=== PATIENT | female | born 1995 | race American Indian/Alaskan Native ===

== ENCOUNTER 2022-02-20 10:55 | Emergency (ER) | payer MEDICAID ==
[2022-02-20 11:10] VITALS: BP 104/79
[2022-02-20] MEDS ORDERED: dexAMETHasone 4 MG/ML VIAL IM ONE (12:33)
[2022-02-20] MEDS ORDERED: ACETAMINOPHEN 500 MG TAB PO ONE (12:33)
--- NOTE | 2022-02-20 12:37 | Emergency Department Report ---
ED ENT HPI - General Chief complaint: Earache Stated complaint: EAR INFECTION Time Seen by Provider: 02/20/22 12:32 Source: patient Mode of arrival: Ambulatory Limitations: No Limitations - History of Present Illness Initial comments: Patient is a 27-year-old female that comes to the emergency room complaining of bilateral ear pain right greater than left. She cannot get in with her primary care for several weeks. She has been taking her mother's amoxicillin. She is 15 weeks . She has no abdominal pain. No vaginal bleeding. No vaginal discharge. No dysuria. No fever or chills. She states that she has had otitis media in the past and knows that this is what it is. MD complaint: ear pain -: Gradual, days(s) Location: R ear Severity: mild Quality: aching Consistency: intermittent Improves with: none Worsens with: none - Related Data Previous Rx's Medication Instructions Recorded Last Taken Type Amoxicillin [Trimox CAP] 500 mg PO BID #20 capsule 02/20/22 Unknown Rx Ofloxacin 0.3% [Floxin 0.3% Otic] 3 drops OT Q4H #1 bottle 02/20/22 Unknown Rx Allergies Allergy/AdvReac Type Severity Reaction Status Date / Time No Known Allergies Allergy Verified 02/20/22 11:07 ED Dental HPI - General Chief complaint: Earache Stated complaint: EAR INFECTION Time Seen by Provider: 02/20/22 12:32 Source: patient Mode of arrival: Ambulatory Limitations: No Limitations - Related Data Previous Rx's Medication Instructions Recorded Last Taken Type Amoxicillin [Trimox CAP] 500 mg PO BID #20 capsule 02/20/22 Unknown Rx Ofloxacin 0.3% [Floxin 0.3% Otic] 3 drops OT Q4H #1 bottle 02/20/22 Unknown Rx Allergies Allergy/AdvReac Type Severity Reaction Status Date / Time No Known Allergies Allergy Verified 02/20/22 11:07 ED Review of Systems ROS: Stated complaint: EAR INFECTION Other details as noted in HPI Comment: All other systems reviewed and negative ED Past Medical Hx - Past Medical History Previous Medical History?: No - Surgical History Past Surgical History?: No - Family History Family history: no significant - Social History Smoking Status: Never Smoker Substance Use Type: None - Medications Home Medications: Home Medications Medication Instructions Recorded Confirmed Last Taken Type Amoxicillin [Trimox CAP] 500 mg PO BID #20 capsule 02/20/22 Unknown Rx Ofloxacin 0.3% [Floxin 0.3% Otic] 3 drops OT Q4H #1 bottle 02/20/22 Unknown Rx ED Physical Exam - General Limitations: No Limitations General appearance: alert, in no apparent distress - Head Head exam: Present: atraumatic, normocephalic - Eye Eye exam: Present: normal appearance - ENT ENT exam: Present: mucous membranes moist - Expanded ENT Exam Expanded TM/Canal exam: Erythema: Right TM, Left TM, Loss of Landmarks: Right TM, Canal Discharge: Right TM, Left TM, Canal Tenderness: Right TM, Left TM - Neck Neck exam: Present: normal inspection - Respiratory Respiratory exam: Present: normal lung sounds bilaterally. Absent: respiratory distress - Cardiovascular Cardiovascular Exam: Present: regular rate, normal rhythm. Absent: systolic murmur, diastolic murmur, rubs, gallop - GI/Abdominal GI/Abdominal exam: Present: soft, normal bowel sounds - Extremities Exam Extremities exam: Present: normal inspection - Back Exam Back exam: Present: normal inspection - Neurological Exam Neurological exam: Present: alert, oriented X3 - Psychiatric Psychiatric exam: Present: normal affect, normal mood - Skin Skin exam: Present: warm, dry, intact, normal color. Absent: rash ED Course Vital Signs 02/20/22 02/20/22 11:07 13:34 Temperature 98.3 F Pulse Rate 105 H Respiratory 16 16 Rate Blood Pressure 104/79 [Left] O2 Sat by Pulse 95 Oximetry ED Medical Decision Making - Medical Decision Making Exam noted. Patient educated on not taking other peoples prescriptions. Given the amount of inflammation of the ears especially the right 1 I have given her Decadron IM x1. Patient being discharged home with discharge plan of care including amoxicillin, diet, activity medications and follow-up. She is to see ENT. She verbalizes understanding. Patient is ambulatory, not ill nontoxic-appearing on exam. She is taking p.o. No abscess. No trismus. ABCs intact. No mastoid tenderness. Vital Signs 02/20/22 02/20/22 11:07 13:34 Temperature 98.3 F Pulse Rate 105 H Respiratory 16 16 Rate Blood Pressure 104/79 [Left] O2 Sat by Pulse 95 Oximetry - Differential Diagnosis om Critical care attestation.: If time is entered above; I have spent that time in minutes in the direct care of this critically ill patient, excluding procedure time. ED Disposition Clinical Impression: Otitis media Qualifiers: Otitis media type: unspecified Chronicity: subacute Qualified Code(s): H66.90 - Otitis media, unspecified, unspecified ear Disposition: HOME / SELF CARE / HOMELESS Is pt being admited?: No Does the pt Need Aspirin: No Condition: Stable Instructions: Otitis Media, Adult, [id number] Additional Instructions: meds as ordered tylenol for pain follow up with ent silvestre referral below Prescriptions: Ofloxacin 0.3% [Floxin 0.3% Otic] 3 drops OT Q4H #1 bottle Amoxicillin [Trimox CAP] 500 mg PO BID #20 capsule Referrals: LEX MEJIA MD [Staff Physician] - 3-5 Days Time of Disposition: 12:34
== END 2022-02-20 15:13 | disposition home or self-care (01) ==
LOC: ED 10:55
DX: H66.90 Otitis media, unspecified, unspecified ear (principal)
CPT/HCPCS: 96372; 99282; J1100